=== PATIENT | male | born 1950 | race African-American/Black ===

== ENCOUNTER 2021-08-21 09:25 | Inpatient (IN) ==
[2021-08-22] MEDS ORDERED: Acetaminophen 325 MG TABLET PO PRN (15:09)
[2021-08-22] MEDS ORDERED: Mag Hydrox/Al Hydrox/Simeth 30 ML UDC PO PRN (15:10)
[2021-08-22] MEDS ORDERED: diazePAM 5 MG TABLET PO PRN (15:12)
[2021-08-22] MEDS ORDERED: *HR* OxyCODONE Immed Rel 5 MG TABLET PO PRN (15:14)
[2021-08-22] MEDS ORDERED: Prochlorperazine 10 MG/2 ML VIAL IVP PRN (15:16)
[2021-08-22] MEDS ORDERED: polyethylene glycoL 3350 17 GM POWD.PACK PO SCH (21:00)
[2021-08-22] MEDS: *HR* OxyCODONE Immed Rel 5 MG TABLET PO PRN (23:31)
[2021-08-23 05:07] LABS: Basophils # 0.1 K/mcL (0.0-0.2); Basophils % 1.2 %; Eosinophils # 0.1 K/mcL (0.0-0.6); Eosinophils % 1.4 %; Hematocrit 32.4 % (37.5-50.1); Hemoglobin 10.9 g/dL (12.9-16.9); Immature Granulocytes % 8.3 % (0-4); Lymphocytes # 2.2 K/mcL (0.6-4.6); Lymphocytes % 25.9 %; Mean Corpuscular HGB Conc 33.6 g/dL (31.6-35.5); Mean Corpuscular Hemoglobin 31.1 pg (28.0-33.3); Mean Corpuscular Volume 92.3 fL (83.0-100.0); Mean Platelet Volume 9.3 fL (9.4-12.4); Monocytes # 0.7 K/mcL (0.0-1.3); Monocytes % 7.7 %; Neutrophils # 4.7 K/mcL (1.6-8.9); Platelet Count 444 K/mcL (140-400); Red Blood Count 3.51 M/mcL (4.19-5.50); Red Cell Distribution Width 13.6 % (11.5-14.5); Segmented Neutrophils % 55.5 %; White Blood Count 8.5 K/mcL (4.3-11.1)
[2021-08-23 05:25] LABS: BUN/Creatinine Ratio 17 (6-26); Blood Urea Nitrogen 13 mg/dL (8-23); Calcium 8.8 mg/dL (8.6-10.3); Carbon Dioxide 25 mEq/L (23-29); Chloride 103 mEq/L (98-107); Glucose 122 mg/dL (70-105); Osmolality,Calculated 281 (280-300); Potassium 4.3 mEq/L (3.5-5.1); Sodium 135 mEq/L (136-145); eGFR For African Americans > 60 (> 60); eGFR For Non-African Americans > 60 (> 60)
[2021-08-23] MEDS: *HR* OxyCODONE Immed Rel 5 MG TABLET PO PRN ×2 (08:36→16:59)
[2021-08-23] MEDS ORDERED: Fluticasone Propionate Nasal 50 MCG/SPRAY BOTTLE NS PRN (17:06)
[2021-08-23] MEDS: amLODIPine 5 MG TABLET PO SCH (17:28)
[2021-08-23] MEDS ORDERED: Sennosides/Docusate Sodium TABLET PO SCH (21:00)
[2021-08-23] MEDS: Bisacodyl 10 MG RECTAL SUPPOSITORY RC SCH (21:32)
[2021-08-24] MEDS: *HR* OxyCODONE Immed Rel 5 MG TABLET PO PRN ×3 (00:06→18:42)
[2021-08-24 04:47] LABS: Hematocrit 32.6 % (37.5-50.1); Hemoglobin 10.9 g/dL (12.9-16.9); Mean Corpuscular HGB Conc 33.4 g/dL (31.6-35.5); Mean Corpuscular Hemoglobin 31.2 pg (28.0-33.3); Mean Corpuscular Volume 93.4 fL (83.0-100.0); Mean Platelet Volume 9.5 fL (9.4-12.4); Platelet Count 470 K/mcL (140-400); Red Blood Count 3.49 M/mcL (4.19-5.50); Red Cell Distribution Width 13.8 % (11.5-14.5); White Blood Count 8.8 K/mcL (4.3-11.1)
[2021-08-24 05:09] LABS: BUN/Creatinine Ratio 16 (6-26); Blood Urea Nitrogen 14 mg/dL (8-23); Calcium 8.9 mg/dL (8.6-10.3); Carbon Dioxide 25 mEq/L (23-29); Chloride 104 mEq/L (98-107); Glucose 115 mg/dL (70-105); Magnesium 2.1 mg/dL (1.6-2.6); Osmolality,Calculated 283 (280-300); Potassium 4.7 mEq/L (3.5-5.1); Sodium 136 mEq/L (136-145); eGFR For African Americans > 60 (> 60); eGFR For Non-African Americans > 60 (> 60)
[2021-08-24] MEDS: amLODIPine 5 MG TABLET PO SCH (08:20)
[2021-08-24] MEDS ORDERED: amLODIPine 5 MG TABLET PO SCH (09:00)
[2021-08-24 16:06] LABS: Bilirubin,Urine Negative (Negative); Blood,Urine Trace-intact (Negative); Clarity,Urine Clear (Clear); Color,Urine Yellow (Yellow); Glucose,Urine (UA) Normal (Normal); Ketones,Urine Negative (Negative); Leukocyte Esterase,Urine Negative (Negative); Nitrite,Urine Negative (Negative); Protein,Urine Negative (Neg-Trace); Urobilinogen,Urine Normal (Normal)
[2021-08-24 16:09] LABS: RBC,Urine 0-3 per hpf (0-3); WBC,Urine 0-3 per hpf (0-3)
[2021-08-24] MEDS: Bisacodyl 10 MG RECTAL SUPPOSITORY RC SCH (19:47)
[2021-08-25] MEDS: *HR* OxyCODONE Immed Rel 5 MG TABLET PO PRN ×2 (05:30→21:12)
[2021-08-25] MEDS: amLODIPine 5 MG TABLET PO SCH (08:11)
[2021-08-25] MEDS: Bisacodyl 10 MG RECTAL SUPPOSITORY RC SCH (21:11)
[2021-08-26] MEDS: *HR* OxyCODONE Immed Rel 5 MG TABLET PO PRN ×2 (07:59→18:33)
[2021-08-26] MEDS: amLODIPine 5 MG TABLET PO SCH (07:59)
[2021-08-26] MEDS: Bisacodyl 10 MG RECTAL SUPPOSITORY RC SCH (20:50)
[2021-08-27] MEDS: *HR* OxyCODONE Immed Rel 5 MG TABLET PO PRN ×2 (06:37→22:03)
[2021-08-27] MEDS: amLODIPine 5 MG TABLET PO SCH (08:03)
[2021-08-27 16:35] LABS: Bilirubin,Urine Negative (Negative); Blood,Urine Large (Negative); Color,Urine Yellow (Yellow); Glucose,Urine (UA) Normal (Normal); Ketones,Urine Negative (Negative); Leukocyte Esterase,Urine Small (Negative); Nitrite,Urine Negative (Negative); PH,Urine 8.5 pH Units (5.0-8.0); Protein,Urine 30 mg/dL (Neg-Trace); Urobilinogen,Urine Normal (Normal)
[2021-08-27 16:45] LABS: Clarity,Urine Cloudy (Clear)
[2021-08-27 16:48] LABS: RBC,Urine 50-100 per hpf (0-3)
[2021-08-27 16:49] LABS: Amorphous Sediment,Urine Moderate per hpf (None-Few); Bacteria,Urine Moderate per hpf (None-Few)
[2021-08-27] MEDS: Sennosides/Docusate Sodium TABLET PO PRN (22:00)
[2021-08-27] MEDS: Bisacodyl 10 MG RECTAL SUPPOSITORY RC SCH (22:01)
[2021-08-28] MEDS: *HR* OxyCODONE Immed Rel 5 MG TABLET PO PRN ×2 (06:51→22:00)
[2021-08-28] MEDS: amLODIPine 5 MG TABLET PO SCH (09:03)
[2021-08-28] MEDS: cefTRIAXone 1,000 MG in 0.9 % Sodium Chloride 10 ML IVP SCH (12:33)
[2021-08-28 16:13] LABS: BUN/Creatinine Ratio 14 (6-26); Blood Urea Nitrogen 13 mg/dL (8-23); Carbon Dioxide 23 mEq/L (23-29); Chloride 99 mEq/L (98-107); Glucose 152 mg/dL (70-105); Osmolality,Calculated 281 (280-300); Sodium 134 mEq/L (136-145); eGFR For African Americans > 60 (> 60); eGFR For Non-African Americans > 60 (> 60)
[2021-08-28 16:14] LABS: Basophils # 0.1 K/mcL (0.0-0.2); Basophils % 0.4 %; Eosinophils # 0.1 K/mcL (0.0-0.6); Eosinophils % 0.4 %; Hemoglobin 14.2 g/dL (12.9-16.9); Immature Granulocytes % 3.2 % (0-4); Lymphocytes # 1.3 K/mcL (0.6-4.6); Lymphocytes % 6.7 %; Mean Corpuscular Hemoglobin 31.1 pg (28.0-33.3); Mean Corpuscular Volume 94.1 fL (83.0-100.0); Mean Platelet Volume 9.8 fL (9.4-12.4); Monocytes # 0.8 K/mcL (0.0-1.3); Platelet Count 563 K/mcL (140-400); Red Blood Count 4.57 M/mcL (4.19-5.50); Red Cell Distribution Width 13.9 % (11.5-14.5); Segmented Neutrophils % 85.3 %; White Blood Count 19.9 K/mcL (4.3-11.1)
[2021-08-28] MEDS: Sennosides/Docusate Sodium TABLET PO PRN (22:00)
[2021-08-28] MEDS: Bisacodyl 10 MG RECTAL SUPPOSITORY RC SCH (22:04)
[2021-08-29] MEDS: *HR* OxyCODONE Immed Rel 5 MG TABLET PO PRN ×3 (06:18→20:49)
[2021-08-29] MEDS: amLODIPine 5 MG TABLET PO SCH (09:15)
[2021-08-29 12:00] LABS: Basophils # 0.1 K/mcL (0.0-0.2); Basophils % 0.8 %; Eosinophils # 0.1 K/mcL (0.0-0.6); Hematocrit 37.8 % (37.5-50.1); Hemoglobin 12.2 g/dL (12.9-16.9); Immature Granulocytes % 3.2 % (0-4); Lymphocytes # 1.8 K/mcL (0.6-4.6); Lymphocytes % 14.7 %; Mean Corpuscular HGB Conc 32.3 g/dL (31.6-35.5); Mean Corpuscular Hemoglobin 30.3 pg (28.0-33.3); Mean Platelet Volume 9.1 fL (9.4-12.4); Monocytes # 0.9 K/mcL (0.0-1.3); Monocytes % 6.8 %; Neutrophils # 9.2 K/mcL (1.6-8.9); Platelet Count 474 K/mcL (140-400); Red Blood Count 4.02 M/mcL (4.19-5.50); Red Cell Distribution Width 13.9 % (11.5-14.5); Segmented Neutrophils % 73.5 %; White Blood Count 12.5 K/mcL (4.3-11.1)
[2021-08-29 12:11] LABS: BUN/Creatinine Ratio 12 (6-26); Blood Urea Nitrogen 11 mg/dL (8-23); Calcium 9.4 mg/dL (8.6-10.3); Carbon Dioxide 25 mEq/L (23-29); Chloride 101 mEq/L (98-107); Glucose 129 mg/dL (70-105); Osmolality,Calculated 281 (280-300); Potassium 3.9 mEq/L (3.5-5.1); Sodium 135 mEq/L (136-145); eGFR For African Americans > 60 (> 60); eGFR For Non-African Americans > 60 (> 60)
[2021-08-29] MEDS: cefTRIAXone 1,000 MG in 0.9 % Sodium Chloride 10 ML IVP SCH (13:21)
[2021-08-29] MEDS: Sennosides/Docusate Sodium TABLET PO PRN (20:46)
[2021-08-29] MEDS: Bisacodyl 10 MG RECTAL SUPPOSITORY RC SCH (20:54)
[2021-08-30 05:10] LABS: Basophils # 0.1 K/mcL (0.0-0.2); Eosinophils # 0.2 K/mcL (0.0-0.6); Eosinophils % 1.8 %; Hematocrit 33.9 % (37.5-50.1); Hemoglobin 11.2 g/dL (12.9-16.9); Immature Granulocytes % 3.6 % (0-4); Lymphocytes # 2.6 K/mcL (0.6-4.6); Lymphocytes % 25.2 %; Mean Corpuscular Hemoglobin 30.7 pg (28.0-33.3); Mean Corpuscular Volume 92.9 fL (83.0-100.0); Mean Platelet Volume 9.3 fL (9.4-12.4); Monocytes # 0.7 K/mcL (0.0-1.3); Monocytes % 6.9 %; Neutrophils # 6.4 K/mcL (1.6-8.9); Platelet Count 499 K/mcL (140-400); Red Blood Count 3.65 M/mcL (4.19-5.50); Red Cell Distribution Width 13.7 % (11.5-14.5); Segmented Neutrophils % 61.5 %; White Blood Count 10.5 K/mcL (4.3-11.1)
[2021-08-30 05:26] LABS: BUN/Creatinine Ratio 13 (6-26); Blood Urea Nitrogen 11 mg/dL (8-23); Calcium 9.2 mg/dL (8.6-10.3); Carbon Dioxide 24 mEq/L (23-29); Chloride 104 mEq/L (98-107); Glucose 106 mg/dL (70-105); Osmolality,Calculated 284 (280-300); Sodium 137 mEq/L (136-145); eGFR For African Americans > 60 (> 60); eGFR For Non-African Americans > 60 (> 60)
[2021-08-30] MEDS: *HR* OxyCODONE Immed Rel 5 MG TABLET PO PRN ×2 (06:59→21:00)
[2021-08-30] MEDS: amLODIPine 5 MG TABLET PO SCH (08:59)
[2021-08-30] MEDS: cefTRIAXone 1,000 MG in 0.9 % Sodium Chloride 10 ML IVP SCH (13:53)
[2021-08-30] MEDS: Bisacodyl 10 MG RECTAL SUPPOSITORY RC SCH (20:56)
[2021-08-30] MEDS: Sennosides/Docusate Sodium TABLET PO PRN (21:00)
[2021-08-31] MEDS: *HR* OxyCODONE Immed Rel 5 MG TABLET PO PRN ×2 (09:00→20:57)
[2021-08-31] MEDS: amLODIPine 5 MG TABLET PO SCH (09:00)
[2021-08-31] MEDS: cefTRIAXone 1,000 MG in 0.9 % Sodium Chloride 10 ML IVP SCH (12:57)
[2021-08-31] MEDS: Sennosides/Docusate Sodium TABLET PO PRN (20:56)
[2021-08-31] MEDS: Bisacodyl 10 MG RECTAL SUPPOSITORY RC SCH (20:58)
[2021-09-01] MEDS: *HR* OxyCODONE Immed Rel 5 MG TABLET PO PRN ×2 (09:53→20:45)
[2021-09-01] MEDS: amLODIPine 5 MG TABLET PO SCH (09:54)
[2021-09-01] MEDS: cefTRIAXone 1,000 MG in 0.9 % Sodium Chloride 10 ML IVP SCH (14:42)
[2021-09-01] MEDS: Bisacodyl 10 MG RECTAL SUPPOSITORY RC SCH (19:08)
[2021-09-01] MEDS: Sennosides/Docusate Sodium TABLET PO PRN (20:45)
[2021-09-02 04:49] LABS: Basophils # 0.1 K/mcL (0.0-0.2); Eosinophils # 0.3 K/mcL (0.0-0.6); Hematocrit 35.9 % (37.5-50.1); Hemoglobin 11.8 g/dL (12.9-16.9); Immature Granulocytes % 3.9 % (0-4); Lymphocytes # 2.3 K/mcL (0.6-4.6); Lymphocytes % 18.9 %; Mean Corpuscular HGB Conc 32.9 g/dL (31.6-35.5); Mean Corpuscular Hemoglobin 30.1 pg (28.0-33.3); Mean Corpuscular Volume 91.6 fL (83.0-100.0); Mean Platelet Volume 9.5 fL (9.4-12.4); Monocytes % 7.7 %; Neutrophils # 8.3 K/mcL (1.6-8.9); Platelet Count 451 K/mcL (140-400); Red Blood Count 3.92 M/mcL (4.19-5.50); Red Cell Distribution Width 13.7 % (11.5-14.5); Segmented Neutrophils % 66.5 %; White Blood Count 12.4 K/mcL (4.3-11.1)
[2021-09-02 05:02] LABS: BUN/Creatinine Ratio 13 (6-26); Blood Urea Nitrogen 13 mg/dL (8-23); Calcium 9.5 mg/dL (8.6-10.3); Carbon Dioxide 27 mEq/L (23-29); Chloride 100 mEq/L (98-107); Glucose 111 mg/dL (70-105); Osmolality,Calculated 279 (280-300); Potassium 4.1 mEq/L (3.5-5.1); Sodium 134 mEq/L (136-145); eGFR For African Americans > 60 (> 60); eGFR For Non-African Americans > 60 (> 60)
[2021-09-02] MEDS: amLODIPine 5 MG TABLET PO SCH (08:51)
[2021-09-02] MEDS: *HR* OxyCODONE Immed Rel 5 MG TABLET PO PRN ×2 (08:52→17:39)
[2021-09-02] MEDS ORDERED: CefTRIAXone 1,000 MG VIAL ONE (13:07)
[2021-09-02] MEDS: cefTRIAXone 1,000 MG in 0.9 % Sodium Chloride 10 ML IVP SCH (13:20)
[2021-09-02] MEDS: Amoxicillin 500 MG CAPSULE PO SCH ×2 (16:50→22:25)
[2021-09-02] MEDS: Sennosides/Docusate Sodium TABLET PO PRN (22:25)
[2021-09-02] MEDS: Bisacodyl 10 MG RECTAL SUPPOSITORY RC SCH (22:26)
[2021-09-03] MEDS: *HR* OxyCODONE Immed Rel 5 MG TABLET PO PRN ×3 (08:26→21:15)
[2021-09-03] MEDS: amLODIPine 5 MG TABLET PO SCH (08:26)
[2021-09-03] MEDS: Amoxicillin 500 MG CAPSULE PO SCH ×3 (08:26→21:14)
[2021-09-03 11:18] LABS: Basophils # 0.1 K/mcL (0.0-0.2); Eosinophils # 0.2 K/mcL (0.0-0.6); Eosinophils % 1.8 %; Hemoglobin 13.1 g/dL (12.9-16.9); Immature Granulocytes % 4.6 % (0-4); Lymphocytes # 1.8 K/mcL (0.6-4.6); Mean Corpuscular HGB Conc 32.8 g/dL (31.6-35.5); Mean Corpuscular Hemoglobin 30.5 pg (28.0-33.3); Mean Platelet Volume 9.4 fL (9.4-12.4); Monocytes # 0.7 K/mcL (0.0-1.3); Monocytes % 6.2 %; Neutrophils # 7.2 K/mcL (1.6-8.9); Platelet Count 468 K/mcL (140-400); Red Cell Distribution Width 13.8 % (11.5-14.5); Segmented Neutrophils % 69.4 %; White Blood Count 10.4 K/mcL (4.3-11.1)
[2021-09-03 11:27] LABS: BUN/Creatinine Ratio 12 (6-26); Blood Urea Nitrogen 11 mg/dL (8-23); Calcium 10.1 mg/dL (8.6-10.3); Carbon Dioxide 30 mEq/L (23-29); Chloride 97 mEq/L (98-107); Glucose 136 mg/dL (70-105); Osmolality,Calculated 281 (280-300); Potassium 4.1 mEq/L (3.5-5.1); Sodium 135 mEq/L (136-145); eGFR For African Americans > 60 (> 60); eGFR For Non-African Americans > 60 (> 60)
[2021-09-03] MEDS: cefTRIAXone 1,000 MG in 0.9 % Sodium Chloride 10 ML IVP SCH (15:50)
[2021-09-03] MEDS: Sennosides/Docusate Sodium TABLET PO PRN (21:15)
[2021-09-03] MEDS: Bisacodyl 10 MG RECTAL SUPPOSITORY RC SCH (21:18)
[2021-09-03] MEDS: polyethylene glycoL 3350 17 GM POWD.PACK PO PRN (21:37)
[2021-09-04] MEDS: *HR* OxyCODONE Immed Rel 5 MG TABLET PO PRN ×3 (05:43→21:37)
[2021-09-04] MEDS: amLODIPine 5 MG TABLET PO SCH (08:10)
[2021-09-04] MEDS: Amoxicillin 500 MG CAPSULE PO SCH ×3 (08:10→21:36)
[2021-09-04] MEDS: cefTRIAXone 1,000 MG in 0.9 % Sodium Chloride 10 ML IVP SCH (15:25)
[2021-09-04] MEDS: polyethylene glycoL 3350 17 GM POWD.PACK PO PRN (21:36)
[2021-09-04] MEDS: Sennosides/Docusate Sodium TABLET PO PRN (21:38)
[2021-09-04] MEDS: Bisacodyl 10 MG RECTAL SUPPOSITORY RC SCH (21:39)
[2021-09-05 04:51] LABS: Basophils # 0.1 K/mcL (0.0-0.2); Basophils % 1.5 %; Eosinophils # 0.3 K/mcL (0.0-0.6); Hematocrit 35.3 % (37.5-50.1); Hemoglobin 11.6 g/dL (12.9-16.9); Immature Granulocytes % 6.8 % (0-4); Lymphocytes # 2.9 K/mcL (0.6-4.6); Lymphocytes % 36.6 %; Mean Corpuscular HGB Conc 32.9 g/dL (31.6-35.5); Mean Corpuscular Volume 91.2 fL (83.0-100.0); Mean Platelet Volume 9.2 fL (9.4-12.4); Monocytes # 0.7 K/mcL (0.0-1.3); Monocytes % 8.8 %; Neutrophils # 3.4 K/mcL (1.6-8.9); Platelet Count 438 K/mcL (140-400); Red Blood Count 3.87 M/mcL (4.19-5.50); Red Cell Distribution Width 13.5 % (11.5-14.5); Segmented Neutrophils % 42.3 %
[2021-09-05 05:04] LABS: BUN/Creatinine Ratio 12 (6-26); Blood Urea Nitrogen 11 mg/dL (8-23); Calcium 9.6 mg/dL (8.6-10.3); Carbon Dioxide 25 mEq/L (23-29); Chloride 101 mEq/L (98-107); Glucose 117 mg/dL (70-105); Osmolality,Calculated 280 (280-300); Potassium 4.2 mEq/L (3.5-5.1); Sodium 135 mEq/L (136-145); eGFR For African Americans > 60 (> 60); eGFR For Non-African Americans > 60 (> 60)
[2021-09-05] MEDS: amLODIPine 5 MG TABLET PO SCH (07:59)
[2021-09-05] MEDS: Amoxicillin 500 MG CAPSULE PO SCH ×3 (07:59→21:20)
[2021-09-05] MEDS: *HR* OxyCODONE Immed Rel 5 MG TABLET PO PRN ×2 (07:59→21:20)
[2021-09-05] MEDS: Sennosides/Docusate Sodium TABLET PO PRN ×2 (08:00→21:19)
[2021-09-05] MEDS ORDERED: *HR* OxyCODONE Immed Rel 5 MG TABLET PO PRN (15:30)
[2021-09-05] MEDS: Cefdinir 300 MG CAPSULE PO SCH (21:20)
[2021-09-05] MEDS: Bisacodyl 10 MG RECTAL SUPPOSITORY RC SCH (21:21)
[2021-09-06] MEDS: *HR* OxyCODONE Immed Rel 5 MG TABLET PO PRN ×3 (05:26→21:43)
[2021-09-06] MEDS: Amoxicillin 500 MG CAPSULE PO SCH ×3 (07:46→21:42)
[2021-09-06] MEDS: Cefdinir 300 MG CAPSULE PO SCH (07:47)
[2021-09-06] MEDS: amLODIPine 5 MG TABLET PO SCH (07:47)
[2021-09-06] MEDS: Sennosides/Docusate Sodium TABLET PO PRN (21:47)
[2021-09-06] MEDS: Bisacodyl 10 MG RECTAL SUPPOSITORY RC SCH (21:49)
[2021-09-07] MEDS: Amoxicillin 500 MG CAPSULE PO SCH (08:55)
[2021-09-07] MEDS: *HR* OxyCODONE Immed Rel 5 MG TABLET PO PRN ×3 (08:55→23:41)
[2021-09-07] MEDS: amLODIPine 5 MG TABLET PO SCH (08:56)
[2021-09-07] MEDS: Bisacodyl 10 MG RECTAL SUPPOSITORY RC SCH (20:56)
[2021-09-07] MEDS: Sennosides/Docusate Sodium TABLET PO PRN (21:02)
[2021-09-08] MEDS: amLODIPine 5 MG TABLET PO SCH (08:33)
[2021-09-08] MEDS: *HR* OxyCODONE Immed Rel 5 MG TABLET PO PRN ×2 (08:35→21:51)
[2021-09-08] MEDS: Bisacodyl 10 MG RECTAL SUPPOSITORY RC SCH (21:52)
[2021-09-08] MEDS: Sennosides/Docusate Sodium TABLET PO PRN (21:52)
[2021-09-09 05:04] LABS: Basophils # 0.1 K/mcL (0.0-0.2); Eosinophils # 0.3 K/mcL (0.0-0.6); Eosinophils % 3.1 %; Hematocrit 35.9 % (37.5-50.1); Hemoglobin 11.9 g/dL (12.9-16.9); Immature Granulocytes % 5.4 % (0-4); Lymphocytes % 34.3 %; Mean Corpuscular HGB Conc 33.1 g/dL (31.6-35.5); Mean Corpuscular Hemoglobin 30.1 pg (28.0-33.3); Mean Corpuscular Volume 90.7 fL (83.0-100.0); Mean Platelet Volume 9.5 fL (9.4-12.4); Monocytes # 0.6 K/mcL (0.0-1.3); Monocytes % 7.3 %; Neutrophils # 4.3 K/mcL (1.6-8.9); Platelet Count 377 K/mcL (140-400); Red Blood Count 3.96 M/mcL (4.19-5.50); Red Cell Distribution Width 13.6 % (11.5-14.5); Segmented Neutrophils % 48.9 %; White Blood Count 8.8 K/mcL (4.3-11.1)
[2021-09-09 05:07] LABS: Platelet Estimate Normal (Normal)
[2021-09-09 05:18] LABS: BUN/Creatinine Ratio 11 (6-26); Blood Urea Nitrogen 11 mg/dL (8-23); Calcium 9.6 mg/dL (8.6-10.3); Carbon Dioxide 27 mEq/L (23-29); Chloride 102 mEq/L (98-107); Glucose 118 mg/dL (70-105); Osmolality,Calculated 282 (280-300); Sodium 136 mEq/L (136-145); eGFR For African Americans > 60 (> 60); eGFR For Non-African Americans > 60 (> 60)
[2021-09-09 07:02] VITALS: BP 136/85; PULSE 79; RESP 15; TEMP 97.3; O2SAT 94
[2021-09-09] MEDS: amLODIPine 5 MG TABLET PO SCH (08:47)
[2021-09-09] MEDS: *HR* OxyCODONE Immed Rel 5 MG TABLET PO PRN (08:54)
== END 2021-09-09 14:35 | disposition home or self-care (01) | DRG 948 ==
LOC: INPGRE 08-22 20:04
PROVIDERS: ADMIT Family Medicine; ATTEND Family Medicine